=== PATIENT | male | born 1955 | race Hispanic/Latino ===

== ENCOUNTER 2017-02-24 09:01 | Outpatient (CLI) | payer OTHER ==
--- NOTE | 2017-02-24 10:26 | MRI ---
BRAIN MRI WITHOUT CONTRAST: Date: 02/24/17 HISTORY: Cerebral infarction. Slurred speech. COMPARISON: 06/18/16. TECHNIQUE: Brain MRI is performed without intravenous Gadolinium administration. Multisequential, multiplanar im aging is performed. FINDINGS: Stable areas of hemosiderin deposition in the flaco, right cerebellum, posterior left corpus callosum, left centrum semiovale, and left deep Patricia matter structures, right caudate nucleus, and right front al lobe. The previously noted large focus of T2 hyperintensity and intrinsic T1 hyperintensity has essentially resolved. Small focus of hemosiderin deposition does remain. Small areas of T2 hyperintensity likely due to malacic change are noted. No acute parenchymal hemorrhage. No extra-axial hematoma. No midline shift. Basilar cisterns are hilliard nt. Brain volume, age-appropriate. Cortical patricia-white matter differentiation preserved. Ventricles and sulci are patent and symmetric. Stable white matter hyperintensities in axial T2 FLAIR sequence. Central arterial flow-voids are maintained. Absent restricted diffusion. Calvarium has a normal marrow signal intensity. Midline brain parenchymal structures are unremarkable . IMPRESSION: 1. No acute intracranial process. 2. Redemonstration of remote hemorrhagic infarction involving multiple foci as described above. 3. Chronic small vessel ischemic changes. POS: [facility]
--- NOTE | 2017-02-24 11:16 | CT ---
CT ANGIOGRAM OF THE NECK: Date: 02/24/17 HISTORY: Previous stroke in April. Evaluate for stenosis. COMPARISON: 06/14/16. TECHNIQUE: CT angiogram of the neck is performed in the axial plane. Sagittal and coronal three-dimensional refo rmatted images are submitted for interpretation. FINDINGS: Visualized brain parenchyma is unremarkable. Visualized orbits are unremarkable. Adequate aeration of the visualized sinuses and mastoid air cells. Aerodigestive tract is patent. There is asymmetric mucosal prominence in the posterior left oropharyn x, with associated calcifications. The possibility of a mucosal based pathology cannot be excluded. D irect visualization is recommended. Epiglottis has a normal caliber. Pre-epiglottic fat is preserved. Midline fatty raphe of the tongue is also preserved. No obvious masses in the anterior coral cavity. There is evidence of periodontal disease with multiple periapical abscesses. No evidence of soft tis karri inflammation. Symmetric attenuation of the parotid and submandibular glands. Symmetric attenuation of the sternocle idomastoid muscles. No evidence of lymphadenopathy by size criteria. Stable degenerative changes of the cervical spine. Upper mediastinum and lung apices are unchanged. Elevation of left hemidiaphragm is noted. CT ANGIOGRAM: Aortic arch has an overall normal caliber. No aneurysm, dissection, or periaortic fat stranding. Both subclavian arteries are patent. Right Carotid: The right carotid artery origin has appropriate enhancement and luminal diameter. There is tortuosity of the proximal right common carotid artery. Right carotid bifurcation and internal carotid artery h ave appropriate enhancement and luminal diameter. Left Carotid: The left carotid origin has appropriate enhancement and luminal diameter. Left common carotid artery, carotid bifurcation, and internal carotid artery have appropriate enhancement and luminal diameter. Minimal atherosclerotic disease in the left cardiac bifurcation. Both vertebral arteries are patent throughout their course in the neck. The right vertebral artery is dominant. Left vertebral artery may have a PICA termination. IMPRESSION: 1. No significant stenosis of the carotid or vertebral arteries. 2. Asymmetric mucosal fullness of the posterior left oral cavity. Direct visualization is recommende candace Hightower. POS: [facility]
[2017-02-24] MEDS ORDERED: Iopamidol 370 76% 100 ML VIAL ONE (11:32)
== END 2017-02-24 09:02 | disposition home or self-care (01) ==
LOC: CT 09:01
PROVIDERS: ATTEND Psychiatry & Neurology Neurology
DX: I63.9 Cerebral infarction, unspecified (principal); I67.82 Cerebral ischemia; R47.81 Slurred speech
CPT/HCPCS: 70498; 70551

== ENCOUNTER 2018-11-15 11:49 | Emergency (ER) | payer OTHER ==
--- NOTE | 2018-11-15 12:32 | CT ---
Head CT without contrast 11/15/2018: COMPARISON: 06/14/2016 HISTORY: Altered mental status TECHNIQUE: Axial CT imaging at 5 mm intervals from vertex through skull base without contrast FINDINGS: Imaged paranasal sinuses/mastoid air cells demonstrate mild mucosal thickening of bilateral maxillary sinuses. There is atherosclerotic calcification of the distal left vertebral artery. No intracranial hemorrhage, midline shift, mass effect, or ventricular enlargement. There is mild stable cerebellar volume loss. IMPRESSION: No acute findings.
[2018-11-15 13:06] LABS: #Basophils 0.1 thou/uL (0.0-0.2); #Eosinphils 0.4 thou/uL (0.0-0.7); #Lymphocytes 2.5 thou/uL (1.20-3.40); #Monocytes 1.3 thou/uL (0.11-0.59); #Neutrophils 7.9 thou/uL (1.40-6.50); %Basophils 0.7 % (0.0-1.0); %Lymphocytes 20.7 % (21.0-51.0); %Monocytes 10.7 % (0.0-10.0); %Neutrophils 64.9 % (42.0-75.0); Hemoglobin 13.5 g/dL (14.0-18.0); Mean Corpuscular HGB CONC 32.6 g/dL (32.0-36.0); Mean Corpuscular Volume 88.9 fL (78.0-98.0); Mean Platelet Volume 7.7 fL (7.4-10.4); Platelet Count 284 thou/uL (130-400); Red Blood Cell (RBC) Count 4.65 mill/uL (4.70-6.10); White Blood Cell (WBC) Count 12.1 thou/uL (4.8-10.8)
[2018-11-15 13:27] LABS: ALT (SGPT) 19 U/L (8-55); AST (SGOT) 14 U/L (5-34); Albumin 4.2 g/dL (3.4-4.8); Alkaline Phosphatase 138 U/L (40-150); Anion Gap 12 mmol/L (10-20); BUN (Urea Nitrogen) 21 mg/dL (8.4-25.7); Bilirubin, Total 0.2 mg/dL (0.2-1.2); Calc. Creatinine Clearance 0 mL/min (70-130); Calcium 9.3 mg/dL (7.8-10.44); Carbon Dioxide 25 mmol/L (23-31); Chloride 106 mmol/L (98-107); Estimated GFR-MDRD 64; Globulin 3.3 g/dL (2.4-3.5); Glucose 85 mg/dL (80-115); Potassium 4.3 mmol/L (3.5-5.1); Protein, Total 7.5 g/dL (5.8-8.1); Sodium 139 mmol/L (136-145)
== END 2018-11-15 15:12 ==
LOC: ERS 11:49
DX: R45.1 Restlessness and agitation (principal); I10 Essential (primary) hypertension; E78.00 Pure hypercholesterolemia, unspecified; F20.9 Schizophrenia, unspecified; Z79.899 Other long term (current) drug therapy
CPT/HCPCS: 36415; 70450; 80053; 84484; 85025; 93005